=== PATIENT | female | born 1955 | race African-American/Black ===

== ENCOUNTER 2017-12-10 08:45 | Emergency (ER) | payer SELFPAY ==
[2017-12-10 08:55] VITALS: TEMP 98.6; BMI 27.4
--- NOTE | 2017-12-10 09:52 | PDOC ---
History of Present Illness - General History Source: Patient Exam Limitations: No Limitations - History of Present Illness Initial Comments: 12/10/17 10:24 The patient is a 62 year old female, with a significant past medical history of HTN, who presents to the emergency department with dizziness and lightheadedness. The patient notes having an acute onset of nausea and dizziness this morning. She notes her symptoms persisted while she was at work. She reports feeling off balance and has complaints of the room spinning. The patient notes since the onset of her lightheadedness her symptoms have greatly improved. The patient also notes having one episode of emesis just after eating breakfast. She denies recent fevers, chills, or headache. She denies recent dysuria, frequency, urgency or hematuria. She denies recent chest pain or shortness of breath. Allergies: NKDA Past surgical history: None reported. Social history: Nonsmoker. Denies EtOH use and recreational drug use. <Walker Woods - Last Filed: 12/10/17 10:24> <Monie Bran - Last Filed: 12/10/17 11:24> - General Chief Complaint: Lightheaded Stated Complaint: BLOOD PRESSURE PROBLEM, DIZZINESS Time Seen by Provider: 12/10/17 09:52 Past History <Walker Woods - Last Filed: 12/10/17 10:24> - Past Medical History COPD: No HTN: Yes - Suicide/Smoking/Psychosocial Hx Smoking Status: No Smoking History: Never smoked Have you smoked in the past 12 months: No Number of Cigarettes Smoked Daily: 0 Information on smoking cessation initiated: No Hx Alcohol Use: No Drug/Substance Use Hx: No Substance Use Type: None <Monie Bran - Last Filed: 12/10/17 11:24> - Past Medical History Allergies/Adverse Reactions: Allergies Allergy/AdvReac Type Severity Reaction Status Date / Time Fish Containing Products Allergy Verified 12/10/17 08:52 pork derived (porcine) Allergy Verified 12/10/17 08:52 Home Medications: Ambulatory Orders Amlodipine Besylate [Norvasc -] 10 mg PO DAILY 12/10/17 Review of Systems - Review of Systems Able to Perform ROS?: Yes Comments:: 12/10/17 10:24 GENERAL/CONSTITUTIONAL: No fever or chills. No weakness. HEAD, EYES, EARS, NOSE AND THROAT: No change in vision. No ear pain or discharge. No sore throat. CARDIOVASCULAR: No chest pain or shortness of breath. RESPIRATORY: No cough, wheezing, or hemoptysis. GASTROINTESTINAL: +nausea No vomiting, diarrhea or constipation. GENITOURINARY: No dysuria, frequency, or change in urination. MUSCULOSKELETAL: No joint or muscle swelling or pain. No neck or back pain. SKIN: No rash NEUROLOGIC: +dizziness and lightheadedness. No headache, loss of consciousness, or change in strength/sensation. ENDOCRINE: No increased thirst. No abnormal weight change. HEMATOLOGIC/LYMPHATIC: No anemia, easy bleeding, or history of blood clots. ALLERGIC/IMMUNOLOGIC: No hives or skin allergy. <Walker Woods - Last Filed: 12/10/17 10:24> *Physical Exam - Vital Signs Last Vital Signs Temp Pulse Resp BP Pulse Ox 98.6 F 64 16 132/78 100 12/10/17 08:52 12/10/17 08:52 12/10/17 08:52 12/10/17 08:52 12/10/17 08:52 - Physical Exam Comments: 12/10/17 10:24 GENERAL: Awake, alert, and fully oriented, in no acute distress HEAD: No signs of trauma EYES: PERRLA, EOMI, sclera anicteric, conjunctiva clear ENT: Auricles normal inspection, hearing grossly normal, nares patent, oropharynx clear without exudates. Moist mucosa NECK: Normal ROM, supple, no lymphadenopathy, JVD, or masses LUNGS: Breath sounds equal, clear to auscultation bilaterally. No wheezes, and no crackles HEART: Regular rate and rhythm, normal S1 and S2, no murmurs, rubs or gallops ABDOMEN: Soft, nontender, normoactive bowel sounds. No guarding, no rebound. No masses EXTREMITIES: Normal range of motion, no edema. No clubbing or cyanosis. No cords, erythema, or tenderness NEUROLOGICAL: Cranial nerves II through XII grossly intact. Normal speech, normal gait SKIN: Warm, Dry, normal turgor, no rashes or lesions noted. <Walker Woods - Last Filed: 12/10/17 10:24> - Vital Signs Last Vital Signs Temp Pulse Resp BP Pulse Ox 98.6 F 64 16 132/78 100 12/10/17 08:52 12/10/17 08:52 12/10/17 08:52 12/10/17 08:52 12/10/17 08:52 <Monie Bran - Last Filed: 12/10/17 11:24> ED Treatment Course - LABORATORY CBC & Chemistry Diagram: 12/10/17 10:30 12/10/17 10:30 <Monie Bran - Last Filed: 12/10/17 11:24> Medical Decision Making - Medical Decision Making 12/10/17 11:18 Pt presents to the ED complaining of an episode of dizziness that she describes both as lightheadness and as vertigo that began this AM. EKG and troponins are negative. Patient is neurologically intact and ambulatory with a steady gait-- symptoms seem most consistent with peripheral vertigo. No concerning history or exam for central vertigo or ACS. Improved after meclizine. Will discharge home. <Monie Bran - Last Filed: 12/10/17 11:24> *DC/Admit/Observation/Transfer - Attestations Scribe Attestion: 12/10/17 10:25 Documentation prepared by Walker Woods, acting as medical records receptionist for Monie Bran MD. <Walker Woods - Last Filed: 12/10/17 10:24> - Discharge Dispostion Admit: No <Monie Bran - Last Filed: 12/10/17 11:24> Diagnosis at time of Disposition: Vertigo - Discharge Dispostion Disposition: HOME Condition at time of disposition: Good - Patient Instructions Printed Discharge Instructions: Vertigo Additional Instructions: return to the ED for severe vertigo, unable to walk, severe nausea and vomiting , passing out, chest pain or shortness of breath, other new or worsening symptoms.
[2017-12-10] MEDS ORDERED: MECLIZINE HCL 25 MG TABLET (FP) PO ONE (10:23)
[2017-12-10] MEDS ORDERED: MECLIZINE HCL 25 MG TABLET (FP) ONE (10:30)
[2017-12-10 10:47] LABS: BASO % 0.4 % (0-2.0); EOS % 2.1 % (0-4.5); HEMATOCRIT 41.8 % (32.4-45.2); HEMOGLOBIN 13.1 GM/dL (10.7-15.3); LYMPH % 38.2 % (8-40); MCH 28.4 pg (25.7-33.7); MCHC 31.4 g/dl (32.0-36.0); MEAN CELL VOLUME 90.4 fl (80-96); MEAN PLT VOLUME 9.8 fl (7.5-11.1); MONO % 7.6 % (3.8-10.2); NEUT % 51.7 % (42.8-82.8); PLATELET COUNT 209 K/MM3 (134-434); RBC 4.62 M/mm3 (3.60-5.2); RDW 16.2 % (11.6-15.6); WHITE BLOOD COUNT 5.4 K/mm3 (4.0-10.0)
[2017-12-10 11:04] VITALS: BP 125/75; PULSE 61
[2017-12-10 11:13] LABS: ALBUMIN 4.1 g/dl (3.4-5.0); ANION GAP 4 (8-16); BILIRUBIN,TOTAL 0.6 mg/dL (0.2-1.0); BLOOD UREA NITROGEN 8 mg/dL (7-18); CALCIUM 9.4 mg/dL (8.5-10.1); CHLORIDE 105 mmol/L (98-107); CO2 33 mmol/L (21-32); CREATININE 0.7 mg/dL (0.55-1.02); GLUCOSE,RANDOM 94 mg/dL (74-106); POTASSIUM 4.7 mmol/L (3.5-5.1); SGOT/AST 12 U/L (15-37); SGPT/ALT 18 U/L (12-78); SODIUM 142 mmol/L (136-145)
[2017-12-10 11:14] LABS: ALK PHOS 111 U/L (45-117); TOT PROT 8.1 g/dl (6.4-8.2)
--- NOTE | 2017-12-10 16:05 | EKG ---
Test Reason : Blood Pressure : / mmHG Vent. Rate : 063 BPM Atrial Rate : 063 BPM P-R Int : 140 ms QRS Dur : 094 ms QT Int : 402 ms P-R-T Axes : 068 021 023 degrees QTc Int : 411 ms NORMAL SINUS RHYTHM NORMAL ECG WHEN COMPARED WITH ECG OF 30-MAR-2006 01:34, NO SIGNIFICANT CHANGE WAS FOUND Confirmed by Jose Elias Hanson ([id number]) on 12/10/2017 4:04:46 PM Referred By: Confirmed By:Jose Elias Hanson
== END 2017-12-10 11:40 | disposition home or self-care (01) ==
LOC: JER 08:45
DX: H81.399 Other peripheral vertigo, unspecified ear (principal)
CPT/HCPCS: 36415; 80053; 82550; 84484; 85025; 93005; 93010; 99282-25